=== PATIENT | male | born 1975 | race Caucasian/White ===

== ENCOUNTER 2017-07-23 09:58 | Emergency (ER) | payer MEDICARE, MEDICAID ==
[2017-07-23 10:13] VITALS: BP 149/105
[2017-07-23] MEDS ORDERED: DOXYcycline CAP(*) 100 MG PO ONE (10:29)
--- NOTE | 2017-07-23 10:36 | UC ---
Skin Complaint HPI - HPI Summary HPI Summary: Patient presents with pat medical history of schizophrenia. He reports he had a tick on his buttock for three hours before he removed it. His mother sent himin worried about lymes disease. He denies any rash, joint pain, fever of chills. He states he thinks part of it is still in him. He has applied DEET, triple A, and [place] balm on it with no effect. - History of Current Complaint Chief Complaint: UCSkin Time Seen by Provider: 07/23/17 10:01 Stated Complaint: TICK BITE Hx Obtained From: Patient Onset/Duration: Sudden Onset Skin Exposure Onset/Duration: Hours Ago Timing: Constant Onset Severity: Mild Current Severity: Mild Location: Discrete - right medial buttock. Character: Painful Aggravating Factor(s): Touch Alleviating Factor(s): OTC Meds Associated Signs & Symptoms: Positive: Negative Related History: Insect Bite/Sting - Allergy/Home Medications Allergies/Adverse Reactions: Allergies Allergy/AdvReac Type Severity Reaction Status Date / Time Cefaclor [From [facility]] Allergy Severe Hives Verified 07/23/17 10:13 Home Medications: Home Medications Camphor-Menthol (Inhalant) [[place] Ultra Strength] 1 applic TOPICAL BEDTIME PRN 07/23/17 [History Confirmed 07/23/17] Qvpsssxi-[id number]-[id number] [Triple Antibiotic] 1 applic TOPICAL DAILY PRN [History Confirmed 07/23/17] Review of Systems Constitutional: Negative Skin: Negative, Other - tick bite right medial buttock Eyes: Negative ENT: Negative Respiratory: Negative Cardiovascular: Negative Gastrointestinal: Negative Genitourinary: Negative Motor: Negative Neurovascular: Negative Musculoskeletal: Negative Neurological: Negative Psychological: Negative All Other Systems Reviewed And Are Negative: Yes PMH/Surg Hx/FS Hx/Imm Hx Previously Healthy: Yes Psychological History: Schizophrenia - Surgical History Surgical History: None - Family History Known Family History: Positive: None - Social History Occupation: Disabled Lives: With Family Alcohol Use: Occasionally Substance Use Type: None Smoking Status (MU): Heavy Every Day Tobacco Smoker Amount Used/How Often: 1ppd - Immunization History Most Recent Influenza Vaccination: not up todate Physical Exam Triage Information Reviewed: Yes Appearance: Well-Appearing Vital Signs: Initial Vital Signs Temp 99.0 F 07/23/17 10:01 Pulse 109 07/23/17 10:01 Resp 16 07/23/17 10:01 BP 149/105 07/23/17 10:01 Pulse Ox 97 07/23/17 10:01 Vital Signs Reviewed: Yes Eye Exam: Normal ENT Exam: Normal Dental Exam: Normal Neck exam: Normal Neck: Positive: 1 Respiratory Exam: Normal Cardiovascular Exam: Normal Abdominal Exam: Normal Musculoskeletal Exam: Normal Neurological Exam: Normal Psychological Exam: Normal Skin Exam: Normal Skin: Positive: Other - small brown scab noted right medial buttock. no erythma migrans noted, flucuance, or induration. Course/Dx - Course Course Of Treatment: Patient presents s/p tick bite he is absolutely sure it was on three hours, he did remove it and thinks the head was still in him, on exam there is a small brown scab, which I investiaged with tweezers, and removed with no noted retained foreign body. He had no erythma migrans, joint pain, or fever, chills or night sweats. I did treat his prophylatically with doxycycline 200mg by mouth once. I also told the patient to follow up with PCP in three weeks for lymes titer. I also told him to stop applying DEET, or tiger balm to the area. He was discharged home in stable condition. - Differential Diagnoses - Skin Complaint Differential Diagnoses: Other - tick bite - Diagnoses Provider Diagnoses: tick bite. prophylaxis doxycycline Discharge - Discharge Plan Condition: Stable Disposition: HOME Patient Education Materials: Tick Bite (ED) Referrals: No Primary Care Phys,NOPCP [Primary Care Provider] - Additional Instructions: If you develop rash, joint pain, fever of chills return to urgent care for further testing as once.
== END 2017-07-23 10:46 | disposition home or self-care (01) ==
LOC: UCEAST 09:58
DX: S30.860A Insect bite (nonvenomous) of lower back and pelvis, initial encounter (principal); W57.XXXA Bitten or stung by nonvenomous insect and other nonvenomous arthropods, initial encounter; Y93.9 Activity, unspecified; Y92.9 Unspecified place or not applicable; F20.9 Schizophrenia, unspecified; Z88.1 Allergy status to other antibiotic agents; F17.210 Nicotine dependence, cigarettes, uncomplicated
CPT/HCPCS: 99202; A9270-GY; G0463

== ENCOUNTER 2019-09-26 12:18 | Emergency (ER) | payer MEDICARE, MEDICAID ==
[2019-09-26 12:52] VITALS: BP 139/99
--- NOTE | 2019-09-26 13:01 | UC ---
Dental HPI - HPI Summary HPI Summary: 44 yo male presents with dental pain. He tells me that he has several broken teeth that get infected from time to time. Over the last week has had right lower dental pain. Today noticed increased pain and swelling to cheek. Denies fever. - History of Current Complaint Chief Complaint: UCDentalProblem Stated Complaint: DENTAL PAIN Time Seen by Provider: 09/26/19 13:01 Hx Obtained From: Patient Onset/Duration: Gradual Onset Severity: Mild Pain Intensity: 3 Pain Scale Used: 0-10 Numeric - Allergies/Home Medications Allergies/Adverse Reactions: Allergies Allergy/AdvReac Type Severity Reaction Status Date / Time cefaclor Allergy Severe Hives Verified 09/26/19 12:53 PMH/Surg Hx/FS Hx/Imm Hx Psychological History: Schizophrenia - Surgical History Surgical History: None - Family History Known Family History: Positive: None - Social History Lives: With Family Alcohol Use: Occasionally Substance Use Type: None Smoking Status (MU): Heavy Every Day Tobacco Smoker Amount Used/How Often: 1ppd - Immunization History Most Recent Influenza Vaccination: not up todate Review of Systems All Other Systems Reviewed And Are Negative: No Constitutional: Positive: Negative Skin: Positive: Negative Eyes: Positive: Negative ENT: Positive: Dental Pain Respiratory: Positive: Negative Cardiovascular: Positive: Negative Neurological: Positive: Negative Psychological: Positive: Negative Physical Exam - Summary Physical Exam Summary: GENERAL: NAD. WDWN. No pain distress. SKIN: No rashes, sores, lesions, or open wounds. HEENT: Head: AT/NC Eyes: EOM intact. Conjunctiva clear without inflammation or discharge. Ears: Hearing grossly normal. TMs intact, no bulging, erythema, or edema. Nose: Nasal mucosa pink and moist. NTTP maxillary and frontal sinus. Throat: Posterior oropharynx without exudates, erythema, or tonsillar enlargement. Uvula midline. NECK: Supple. Nontender. No lymphadenopathy. CHEST: CTAB. No accessory muscle use. Breathing comfortably and in no distress. CV: RRR. Pulses intact. Cap refill <2seconds NEURO: Alert. PSYCH: Age appropriate behavior. Triage Information Reviewed: Yes Vital Signs: Initial Vital Signs Temp 99.3 F 09/26/19 12:48 Pulse 120 09/26/19 12:48 Resp 17 09/26/19 12:48 BP 139/99 09/26/19 12:48 Pulse Ox 98 09/26/19 12:48 Vital Signs Reviewed: Yes Dental: Positive: Percussion Tenderness @ - Tooth #31, Gross Decay/Caries @ - throughout, Dental Fracture @ - Tooth #31, Abscess @ - Tooth #31, Cellulitis @ - Tooth #31. Negative: Cervical Lymphadenopathy, Bleeding Dental Complaint Course/Dx - Course Course Of Treatment: Tooth #31 abscess - Differential Dx/Diagnosis Provider Diagnosis: Dental abscess Discharge ED - Sign-Out/Discharge Documenting (check all that apply): Patient Departure All imaging exams completed and their final reports reviewed: No Studies - Discharge Plan Condition: Stable Disposition: HOME Prescriptions: Clindamycin HCl 300 mg PO TID #21 capsule Patient Education Materials: Dental Abscess (ED) Referrals: No Primary Care Phys,NOPCP [Primary Care Provider] - Additional Instructions: If you develop a fever, shortness of breath, chest pain, new or worsening symptoms - please call your PCP or go to the ED immediately. Your blood pressure was high at todays visit. Please see your primary provider within 4 weeks for recheck and re-evaluation. - Billing Disposition and Condition Condition: STABLE Disposition: Home
== END 2019-09-26 13:12 | disposition home or self-care (01) ==
LOC: UCEAST 12:18
DX: K04.7 Periapical abscess without sinus (principal); F17.210 Nicotine dependence, cigarettes, uncomplicated; Z88.1 Allergy status to other antibiotic agents
CPT/HCPCS: 99212; G0463

== ENCOUNTER 2020-08-08 23:02 | Inpatient (IN) ==
[2020-08-09 00:25] LABS: ABS Basophils 0.1 10^3/ul (0-0.2); ABS Eosinophils 0.2 10^3/ul (0-0.6); ABS Lymphocytes 1.5 10^3/ul (1.0-4.8); ABS Monocytes 1.1 10^3/ul (0-0.8); ABS Neutrophils 12.7 10^3/ul (1.5-7.7); Hematocrit 35 % (42-52); Hemoglobin 12.2 g/dL (14.0-18.0); Lymphocyte % 9.4 %; Mean Corpuscular HGB Conc 35 g/dL (31-36); Mean Corpuscular Hemoglobin 34 pg (27-31); Mean Corpuscular Volume 99 fL (80-94); Mean Platelet Volume 8.6 fL (7.4-10.4); Platelet Count 262 10^3/uL (150-450); Red Blood Count 3.56 10^6 /uL (4.18-5.48); Red Cell Distribution Width 13 % (10-15); White Blood Count 15.5 10^3/uL (3.5-10.8)
[2020-08-09 00:43] LABS: ALT 62 U/L (7-52); AST 84 U/L (13-39); Albumin 3.4 g/dL (3.2-5.2); Albumin/Globulin Ratio 1.1 (1-3); Alkaline Phosphatase 70 U/L (34-104); Anion Gap 8 mmol/L (2-11); BUN/Creatinine Ratio 12.2 (8-20); Blood Urea Nitrogen 12 mg/dL (6-24); C Reactive Protein 218.57 mg/L (<8.01); CO2 Carbon Dioxide 23 mmol/L (22-32); Calcium 8.5 mg/dL (8.6-10.3); Chloride 94 mmol/L (101-111); EGFR Non-African American 83.5 (>60); Glucose 368 mg/dL (70-100); Potassium 4.4 mmol/L (3.5-5.0); Sodium 125 mmol/L (135-145); Total Protein 6.4 g/dL (6.4-8.9)
[2020-08-09 00:57] LABS: Urine Appearance Clear; Urine Bilirubin Negative (Negative); Urine Blood 1+ (Negative); Urine Color Yellow; Urine Glucose 3+(>=500 mg/dL) (Negative); Urine Ketones Trace (Negative); Urine Nitrite Negative (Negative); Urine Protein Negative (Negative); Urine Specific Gravity 1.017 (1.010-1.030); Urine Urobilinogen Negative (Negative)
[2020-08-09 01:04] LABS: Urine Benzodiazepine Screen None Detected (None Detect); Urine Cannabinoids Screen None Detected (None Detect); Urine Opiates Screen None Detected (None Detect)
[2020-08-09] MEDS ORDERED: Iohexol 350 (CONTRAST) 500 ML MDV IV ONE (01:04)
[2020-08-09 01:08] LABS: Urine Bacteria Absent (Absent); Urine Red Blood Cell Trace(0-2/hpf) (Absent); Urine White Blood Cell Trace(0-5/hpf) (Absent)
[2020-08-09] MEDS ORDERED: NS 0.9% 1000 ml BAG 1,000 ML IV SCH (01:30)
[2020-08-09] MEDS ORDERED: NS 0.9% 1000 ml BAG 1,000 ML IV ONE (01:36)
[2020-08-09] MEDS ORDERED: Dextrose 50% Syringe 50 ml 25 GM/50 ML SYRINGE IV PUSH PRN (01:50)
[2020-08-09] MEDS: Dexamethasone IV 4 MG/ML VIAL 1 ml VIAL IV SLOW PU SCH (01:59)
[2020-08-09 03:24] LABS: Troponin I 11.07 ng/mL (<0.03)
[2020-08-09] MEDS ORDERED: Enoxaparin 100 MG/ML SYR SUBCUT SCH (04:00)
[2020-08-09] MEDS ORDERED: Metoprolol Tartrate 5 mg VIAL 5 ml VIAL (1 mg/ml) IV ONE (04:16)
[2020-08-09 05:57] LABS: ABS Lymphocytes 0.9 10^3/ul (1.0-4.8); ABS Monocytes 0.6 10^3/ul (0-0.8); ABS Neutrophils 15.8 10^3/ul (1.5-7.7); Eosinophil % 0.2 %; Hematocrit 36 % (42-52); Hemoglobin 12.7 g/dL (14.0-18.0); Lymphocyte % 5.2 %; Mean Corpuscular HGB Conc 35 g/dL (31-36); Mean Corpuscular Hemoglobin 35 pg (27-31); Mean Corpuscular Volume 99 fL (80-94); Mean Platelet Volume 9.1 fL (7.4-10.4); Nucleated Red Blood Cells % 0.1; Platelet Count 277 10^3/uL (150-450); Red Blood Count 3.62 10^6 /uL (4.18-5.48); Red Cell Distribution Width 13 % (10-15); White Blood Count 17.4 10^3/uL (3.5-10.8)
[2020-08-09 06:08] LABS: ALT 60 U/L (7-52); AST 75 U/L (13-39); Albumin 3.4 g/dL (3.2-5.2); Albumin/Globulin Ratio 1.1 (1-3); Alkaline Phosphatase 83 U/L (34-104); BUN/Creatinine Ratio 11.8 (8-20); Blood Urea Nitrogen 11 mg/dL (6-24); CO2 Carbon Dioxide 22 mmol/L (22-32); Calcium 8.3 mg/dL (8.6-10.3); Chloride 101 mmol/L (101-111); EGFR African American 107.3 (>60); EGFR Non-African American 88.7 (>60); Globulin 3.1 g/dL (2-4); Glucose 293 mg/dL (70-100); Sodium 130 mmol/L (135-145); Total Protein 6.5 g/dL (6.4-8.9)
[2020-08-09 06:09] LABS: Anion Gap 7 mmol/L (2-11); Potassium 5.2 mmol/L (3.5-5.0)
[2020-08-09 06:11] LABS: Troponin I 8.77 ng/mL (<0.03)
[2020-08-09] MEDS ORDERED: Furosemide 20 mg/2 ml IV VIAL IV SLOW PU ONE ×2 (08:29→11:53)
[2020-08-09 08:31] LABS: Influenza A Molecular Negative (Negative); Influenza B Molecular Negative (Negative)
[2020-08-09 08:43] LABS: Troponin I 10.85 ng/mL (<0.03)
[2020-08-09] MEDS ORDERED: Zosyn per Pharmacy NOTE FOLLOW UP SCH (09:00)
[2020-08-09] MEDS ORDERED: METHYLPHENIDATE HCL 20 MG PO SCH (09:00)
[2020-08-09] MEDS ORDERED: Piperacillin/Tazobac ADVAN 3.375 GM in NS 0.9% 100 ml BAG 100 ML IV ONE (09:00)
[2020-08-09] MEDS ORDERED: Remdesivir 5 MG/ML LIQ IV Vial 200 MG in NS 0.9% 250 ml 210 ML IV ONE (10:00)
[2020-08-09] MEDS: Insulin GLARGINE 100 un/ml 10 ml VIAL SUBCUT SCH (11:03)
[2020-08-09] MEDS ORDERED: Perflutren Lipid Microsphere 3 ML VIAL ONE (11:22)
[2020-08-09 12:14] LABS: Troponin I 10.59 ng/mL (<0.03)
[2020-08-09] MEDS: Heparin DRIP 25,000 UNITS BAG 25,000 UNITS/500 ML BAG IV SCH (13:39)
[2020-08-09 14:33] LABS: Glucose 374 mg/dL (70-100)
[2020-08-09 15:56] LABS: Anion Gap 10 mmol/L (2-11); BUN/Creatinine Ratio 14.4 (8-20); Blood Urea Nitrogen 14 mg/dL (6-24); CO2 Carbon Dioxide 21 mmol/L (22-32); Calcium 8.2 mg/dL (8.6-10.3); Chloride 101 mmol/L (101-111); EGFR African American 102.2 (>60); EGFR Non-African American 84.5 (>60); Sodium 132 mmol/L (135-145)
[2020-08-09 15:57] LABS: Troponin I 11.35 ng/mL (<0.03)
[2020-08-09 16:45] LABS: Calcium 8.5 mg/dL (8.6-10.3); Potassium 4.2 mmol/L (3.5-5.0)
[2020-08-09] MEDS: ZOSYN 3.375 GM Q8H per EXTENDED INFUSION IV SCH (16:49)
[2020-08-09 16:51] LABS: BUN/Creatinine Ratio 15.7 (8-20); EGFR African American 90.3 (>60); EGFR Non-African American 74.6 (>60)
[2020-08-09 20:31] LABS: Troponin I 12.44 ng/mL (<0.03)
[2020-08-09] MEDS: Heparin 5000 UNITS/ML 1 mL VIAL IV SCH (21:29)
[2020-08-09 23:41] LABS: Troponin I 15.26 ng/mL (<0.03)
[2020-08-10] MEDS: ZOSYN 3.375 GM Q8H per EXTENDED INFUSION IV SCH ×4 (01:16→22:54)
[2020-08-10] MEDS: Dexamethasone IV 4 MG/ML VIAL 1 ml VIAL IV SLOW PU SCH (01:16)
[2020-08-10 02:35] LABS: Troponin I 15.17 ng/mL (<0.03)
[2020-08-10 04:57] LABS: Hematocrit 38 % (42-52); Hemoglobin 13.1 g/dL (14.0-18.0); Mean Corpuscular HGB Conc 34 g/dL (31-36); Mean Corpuscular Hemoglobin 35 pg (27-31); Mean Corpuscular Volume 100 fL (80-94); Platelet Count 355 10^3/uL (150-450); Red Blood Count 3.78 10^6 /uL (4.18-5.48); Red Cell Distribution Width 13 % (10-15); White Blood Count 23.8 10^3/uL (3.5-10.8)
[2020-08-10 05:21] LABS: Troponin I 12.08 ng/mL (<0.03)
[2020-08-10] MEDS: Heparin 5000 UNITS/ML 1 mL VIAL IV SCH (05:34)
[2020-08-10 07:17] LABS: ABS Basophils 0.1 10^3/ul (0-0.2); ABS Lymphocytes 1.8 10^3/ul (1.0-4.8); ABS Monocytes 0.9 10^3/ul (0-0.8); ABS Neutrophils 20.9 10^3/ul (1.5-7.7); Lymphocyte % 7.5 %
[2020-08-10] MEDS: Heparin DRIP 25,000 UNITS BAG 25,000 UNITS/500 ML BAG IV SCH (07:51)
[2020-08-10] MEDS: Insulin GLARGINE 100 un/ml 10 ml VIAL SUBCUT SCH (08:28)
[2020-08-10] MEDS: Furosemide 40 mg/4 ml IV VIAL IV SLOW PU SCH (08:30)
[2020-08-10 08:34] LABS: Troponin I 10.28 ng/mL (<0.03)
[2020-08-10] MEDS ORDERED: NS 0.9% 100 ml BAG 100 ML ONE (09:23)
[2020-08-10 13:33] LABS: Troponin I 9.72 ng/mL (<0.03)
[2020-08-10] MEDS ORDERED: Heparin 1,000 UNIT/ML 10 ml (10,000 UNITS) CATHLAB/DIALYSIS ONE (13:40)
[2020-08-10] MEDS ORDERED: nitroGLYCERIN DRIP 0 MCG/0 ML BTL ONE (13:40)
[2020-08-10] MEDS ORDERED: Iohexol 350 (CONTRAST) 200 ML MDV IV ONE ×3 (13:40→14:46)
[2020-08-10] MEDS ORDERED: Midazolam 5 mg/5 ml VIAL 1 mg/ml 5 ml VIAL (5 mg) ONE (13:40)
[2020-08-10] MEDS ORDERED: Heparin 2 UNITS/ML 1000 mls 3,000 ML IV ONE (13:40)
[2020-08-10] MEDS ORDERED: VERAPAMIL 2.5 MG/ML 2 ML VIAL ** 5 mg/2 ml ONE (13:40)
[2020-08-10] MEDS ORDERED: fentaNYL 100 mcg/2 ml 50 MCG/ML VIAL ONE (13:40)
[2020-08-10] MEDS ORDERED: Lidocaine 1% VIAL 10 MG/ML VIAL ONE (13:40)
[2020-08-10] MEDS ORDERED: diPHENhydraMINE IV 50 MG/ML 1 ml VIAL (BENADRYL) ONE (13:41)
[2020-08-10] MEDS ORDERED: NS 0.9% 1000 ml BAG 1,000 ML IV SCH ×2 (13:45→16:00)
[2020-08-10] MEDS ORDERED: Heparin 2 UNITS/ML 1000 mls 1,000 ML IV ONE (15:16)
[2020-08-10] MEDS ORDERED: DOBUTamine 2000 MCG/ML IVPREMX 500 MG/250 ML BAG IV ONE (15:17)
[2020-08-10] MEDS ORDERED: DOBUTAMINE IV SCH (17:00)
[2020-08-10] MEDS ORDERED: D5W IV SCH (17:00)
[2020-08-10] MEDS ORDERED: DOBUTAMINE DRIP IV SCH (17:00)
[2020-08-10 17:29] LABS: ABS Basophils 0.1 10^3/ul (0-0.2); ABS Lymphocytes 1.6 10^3/ul (1.0-4.8); ABS Neutrophils 14.9 10^3/ul (1.5-7.7); Hematocrit 40 % (42-52); Hemoglobin 13.4 g/dL (14.0-18.0); Mean Corpuscular HGB Conc 34 g/dL (31-36); Mean Corpuscular Hemoglobin 34 pg (27-31); Mean Corpuscular Volume 102 fL (80-94); Mean Platelet Volume 8.7 fL (7.4-10.4); Platelet Count 373 10^3/uL (150-450); Red Blood Count 3.93 10^6 /uL (4.18-5.48); Red Cell Distribution Width 13 % (10-15); White Blood Count 17.6 10^3/uL (3.5-10.8)
[2020-08-10 17:54] LABS: BUN/Creatinine Ratio 22.4 (8-20); Calcium 8.4 mg/dL (8.6-10.3); EGFR African American 91.3 (>60); EGFR Non-African American 75.4 (>60); Magnesium 2.2 mg/dL (1.9-2.7); Potassium 3.8 mmol/L (3.5-5.0)
[2020-08-10] MEDS ORDERED: Furosemide 40 mg/4 ml IV VIAL IV SLOW PU ONE (18:26)
[2020-08-10] MEDS ORDERED: Potassium Chlor 20 meq TAB.ER PO ONE (20:15)
[2020-08-11] MEDS: Dexamethasone IV 4 MG/ML VIAL 1 ml VIAL IV SLOW PU SCH (02:37)
[2020-08-11 04:25] LABS: Hematocrit 37 % (42-52); Hemoglobin 12.8 g/dL (14.0-18.0); Mean Corpuscular HGB Conc 34 g/dL (31-36); Mean Corpuscular Hemoglobin 34 pg (27-31); Mean Corpuscular Volume 100 fL (80-94); Mean Platelet Volume 8.4 fL (7.4-10.4); Platelet Count 358 10^3/uL (150-450); Red Blood Count 3.73 10^6 /uL (4.18-5.48); Red Cell Distribution Width 13 % (10-15); White Blood Count 19.5 10^3/uL (3.5-10.8)
[2020-08-11 04:40] LABS: BUN/Creatinine Ratio 21.6 (8-20); Calcium 7.9 mg/dL (8.6-10.3); EGFR African American 83.1 (>60); EGFR Non-African American 68.7 (>60); Magnesium 2.2 mg/dL (1.9-2.7); Potassium 4.3 mmol/L (3.5-5.0)
[2020-08-11] MEDS: ZOSYN 3.375 GM Q8H per EXTENDED INFUSION IV SCH ×2 (08:24→16:18)
[2020-08-11] MEDS: Insulin GLARGINE 100 un/ml 10 ml VIAL SUBCUT SCH (08:27)
[2020-08-11] MEDS: Furosemide 40 mg/4 ml IV VIAL IV SLOW PU SCH (08:35)
[2020-08-11] MEDS ORDERED: Metoprolol Tartrate 5 mg VIAL 5 ml VIAL (1 mg/ml) IV ONE (12:55)
[2020-08-11] MEDS ORDERED: Furosemide 40 mg/4 ml IV VIAL IV ONE (16:00)
[2020-08-12] MEDS: ZOSYN 3.375 GM Q8H per EXTENDED INFUSION IV SCH ×3 (01:08→16:00)
[2020-08-12] MEDS: DOBUTamine 2000 MCG/ML IVPREMX 500 MG/250 ML BAG IV SCH ×2 (01:09→19:06)
[2020-08-12 06:50] LABS: ABS Lymphocytes 2.4 10^3/ul (1.0-4.8); ABS Monocytes 1.3 10^3/ul (0-0.8); ABS Neutrophils 11.4 10^3/ul (1.5-7.7); Eosinophil % 0.1 %; Hematocrit 39 % (42-52); Lymphocyte % 15.8 %; Mean Corpuscular HGB Conc 33 g/dL (31-36); Mean Corpuscular Hemoglobin 34 pg (27-31); Mean Corpuscular Volume 102 fL (80-94); Mean Platelet Volume 8.7 fL (7.4-10.4); Platelet Count 343 10^3/uL (150-450); Red Blood Count 3.81 10^6 /uL (4.18-5.48); Red Cell Distribution Width 13 % (10-15)
[2020-08-12 07:06] LABS: BUN/Creatinine Ratio 24.3 (8-20); Calcium 7.9 mg/dL (8.6-10.3); EGFR African American 87.5 (>60); EGFR Non-African American 72.3 (>60); Potassium 4.1 mmol/L (3.5-5.0)
[2020-08-12] MEDS: Furosemide 40 mg/4 ml IV VIAL IV SLOW PU SCH (08:17)
[2020-08-12] MEDS: Insulin GLARGINE 100 un/ml 10 ml VIAL SUBCUT SCH (08:33)
[2020-08-12] MEDS ORDERED: Heparin DRIP 25,000 UNITS BAG 25,000 UNITS/500 ML BAG IV SCH ×2 (14:15→15:50)
[2020-08-12 15:05] LABS: ABS Basophils 0.1 10^3/ul (0-0.2); ABS Eosinophils 0.1 10^3/ul (0-0.6); ABS Lymphocytes 3.4 10^3/ul (1.0-4.8); ABS Monocytes 1.6 10^3/ul (0-0.8); Eosinophil % 0.4 %; Hematocrit 42 % (42-52); Hemoglobin 14.4 g/dL (14.0-18.0); Lymphocyte % 19.7 %; Mean Corpuscular HGB Conc 34 g/dL (31-36); Mean Corpuscular Hemoglobin 34 pg (27-31); Mean Corpuscular Volume 101 fL (80-94); Mean Platelet Volume 8.4 fL (7.4-10.4); Platelet Count 411 10^3/uL (150-450); Red Blood Count 4.17 10^6 /uL (4.18-5.48); Red Cell Distribution Width 14 % (10-15); White Blood Count 17.2 10^3/uL (3.5-10.8)
[2020-08-12 15:13] LABS: EGFR African American 64.8 (>60); EGFR Non-African American 53.5 (>60)
[2020-08-12] MEDS: Heparin 5000 UNITS/ML 1 mL VIAL IV SCH ×2 (16:00→23:02)
[2020-08-13] MEDS: ZOSYN 3.375 GM Q8H per EXTENDED INFUSION IV SCH ×4 (00:23→20:30)
[2020-08-13 05:09] LABS: Hematocrit 44 % (42-52); Hemoglobin 14.4 g/dL (14.0-18.0); Mean Corpuscular HGB Conc 33 g/dL (31-36); Mean Corpuscular Hemoglobin 34 pg (27-31); Mean Corpuscular Volume 101 fL (80-94); Mean Platelet Volume 8.3 fL (7.4-10.4); Platelet Count 394 10^3/uL (150-450); Red Cell Distribution Width 13 % (10-15); White Blood Count 15.6 10^3/uL (3.5-10.8)
[2020-08-13] MEDS: Heparin 5000 UNITS/ML 1 mL VIAL IV SCH (05:29)
[2020-08-13 05:32] LABS: BUN/Creatinine Ratio 23.3 (8-20); Calcium 8.3 mg/dL (8.6-10.3); EGFR Non-African American 66.1 (>60); Potassium 4.4 mmol/L (3.5-5.0)
[2020-08-13 05:47] LABS: ABS Basophils 0.1 10^3/ul (0-0.2); ABS Eosinophils 0.2 10^3/ul (0-0.6); ABS Lymphocytes 4.9 10^3/ul (1.0-4.8); ABS Monocytes 1.5 10^3/ul (0-0.8); ABS Neutrophils 8.9 10^3/ul (1.5-7.7); Eosinophil % 1.6 %; Lymphocyte % 31.2 %; Nucleated Red Blood Cells % 0.1
[2020-08-13] MEDS ORDERED: NS 0.9% 1000 ml BAG 1,000 ML IV SCH (08:30)
[2020-08-13] MEDS: Insulin GLARGINE 100 un/ml 10 ml VIAL SUBCUT SCH (09:17)
[2020-08-13] MEDS ORDERED: fentaNYL 100 mcg/2 ml 50 MCG/ML VIAL ONE (09:19)
[2020-08-13] MEDS ORDERED: Midazolam 5 mg/5 ml VIAL 1 mg/ml 5 ml VIAL (5 mg) ONE (09:19)
[2020-08-13] MEDS ORDERED: VERAPAMIL 2.5 MG/ML 2 ML VIAL ** 5 mg/2 ml ONE (09:19)
[2020-08-13] MEDS ORDERED: Heparin 1,000 UNIT/ML 10 ml (10,000 UNITS) CATHLAB/DIALYSIS ONE (09:19)
[2020-08-13] MEDS ORDERED: Iohexol 350 (CONTRAST) 200 ML MDV IV ONE ×2 (09:20→09:47)
[2020-08-13] MEDS ORDERED: Lidocaine 1% VIAL 10 MG/ML VIAL ONE (09:20)
[2020-08-13] MEDS ORDERED: Heparin 2 UNITS/ML 1000 mls 2,000 ML IV ONE (09:20)
[2020-08-13] MEDS ORDERED: nitroGLYCERIN DRIP 25,000 MCG/250 ML BTL ONE (09:20)
[2020-08-13] MEDS ORDERED: Bivalirudin 250 MG VIAL ONE ×2 (09:54→10:59)
[2020-08-13] MEDS ORDERED: Furosemide 40 mg/4 ml IV VIAL ONE (11:02)
[2020-08-13] MEDS: Furosemide 40 mg/4 ml IV VIAL IV SLOW PU SCH (11:51)
[2020-08-14] MEDS: ZOSYN 3.375 GM Q8H per EXTENDED INFUSION IV SCH ×3 (04:51→19:57)
[2020-08-14 05:36] LABS: Hematocrit 44 % (42-52); Hemoglobin 14.8 g/dL (14.0-18.0); Mean Corpuscular HGB Conc 34 g/dL (31-36); Mean Corpuscular Hemoglobin 34 pg (27-31); Mean Corpuscular Volume 100 fL (80-94); Mean Platelet Volume 8.5 fL (7.4-10.4); Platelet Count 389 10^3/uL (150-450); Red Blood Count 4.36 10^6 /uL (4.18-5.48); Red Cell Distribution Width 13 % (10-15); White Blood Count 17.1 10^3/uL (3.5-10.8)
[2020-08-14 05:50] LABS: Albumin 3.3 g/dL (3.2-5.2); BUN/Creatinine Ratio 26.4 (8-20); Calcium 8.4 mg/dL (8.6-10.3); EGFR African American 88.4 (>60); EGFR Non-African American 73.1 (>60); Globulin 3.2 g/dL (2-4); Potassium 4.3 mmol/L (3.5-5.0); Total Bilirubin 0.6 mg/dL (0.2-1.0); Total Protein 6.5 g/dL (6.4-8.9)
[2020-08-14 05:54] LABS: ABS Eosinophils 0.4 10^3/ul (0-0.6); ABS Lymphocytes 3.5 10^3/ul (1.0-4.8); ABS Monocytes 1.4 10^3/ul (0-0.8); ABS Neutrophils 11.7 10^3/ul (1.5-7.7); Eosinophil % 2.6 %; Lymphocyte % 20.4 %
[2020-08-14] MEDS: Insulin GLARGINE 100 un/ml 10 ml VIAL SUBCUT SCH (09:12)
[2020-08-14] MEDS: Furosemide 40 mg/4 ml IV VIAL IV SLOW PU SCH (09:56)
[2020-08-15] MEDS: ZOSYN 3.375 GM Q8H per EXTENDED INFUSION IV SCH ×3 (04:29→21:01)
[2020-08-15 06:57] LABS: ABS Eosinophils 0.4 10^3/ul (0-0.6); ABS Lymphocytes 2.5 10^3/ul (1.0-4.8); ABS Monocytes 1.4 10^3/ul (0-0.8); ABS Neutrophils 12.2 10^3/ul (1.5-7.7); Eosinophil % 2.3 %; Hematocrit 40 % (42-52); Hemoglobin 13.9 g/dL (14.0-18.0); Mean Corpuscular HGB Conc 35 g/dL (31-36); Mean Corpuscular Hemoglobin 34 pg (27-31); Mean Corpuscular Volume 99 fL (80-94); Mean Platelet Volume 8.2 fL (7.4-10.4); Platelet Count 386 10^3/uL (150-450); Red Blood Count 4.06 10^6 /uL (4.18-5.48); Red Cell Distribution Width 14 % (10-15); White Blood Count 16.5 10^3/uL (3.5-10.8)
[2020-08-15 07:13] LABS: BUN/Creatinine Ratio 25.2 (8-20); Calcium 8.1 mg/dL (8.6-10.3); EGFR African American 87.5 (>60); EGFR Non-African American 72.3 (>60); Potassium 4.4 mmol/L (3.5-5.0)
[2020-08-15 08:21] LABS: Magnesium 2.1 mg/dL (1.9-2.7)
[2020-08-15] MEDS: Insulin GLARGINE 100 un/ml 10 ml VIAL SUBCUT SCH (08:27)
[2020-08-15 08:54] LABS: C Reactive Protein 20.13 mg/L (<8.01)
[2020-08-16 07:02] LABS: ABS Basophils 0.1 10^3/ul (0-0.2); ABS Eosinophils 0.4 10^3/ul (0-0.6); ABS Lymphocytes 2.6 10^3/ul (1.0-4.8); ABS Monocytes 1.5 10^3/ul (0-0.8); ABS Neutrophils 11.6 10^3/ul (1.5-7.7); Eosinophil % 2.3 %; Hematocrit 42 % (42-52); Hemoglobin 14.3 g/dL (14.0-18.0); Mean Corpuscular HGB Conc 35 g/dL (31-36); Mean Corpuscular Hemoglobin 34 pg (27-31); Mean Corpuscular Volume 99 fL (80-94); Mean Platelet Volume 8.5 fL (7.4-10.4); Platelet Count 398 10^3/uL (150-450); Red Blood Count 4.17 10^6 /uL (4.18-5.48); Red Cell Distribution Width 13 % (10-15); White Blood Count 16.1 10^3/uL (3.5-10.8)
[2020-08-16 07:21] LABS: BUN/Creatinine Ratio 22.7 (8-20); Calcium 8.4 mg/dL (8.6-10.3); EGFR African American 88.4 (>60); EGFR Non-African American 73.1 (>60); Potassium 4.4 mmol/L (3.5-5.0)
[2020-08-16] MEDS: Insulin GLARGINE 100 un/ml 10 ml VIAL SUBCUT SCH (08:35)
[2020-08-16 15:21] VITALS: BP 97/59
== END 2020-08-16 16:05 | disposition home or self-care (01) | DRG 246 ==
LOC: ED 23:02 → ICU 08-09 01:28 → MEDTELE 08-14 14:51
PROVIDERS: ADMIT Student in an Organized Health Care Education/Training Program; ATTEND Pediatrics